=== PATIENT | female | born 1975 | race Caucasian/White ===

== ENCOUNTER 2017-11-22 21:29 | Emergency (ER) | payer MEDICARE, MEDICAID ==
[2017-11-22] MEDS ORDERED: Ondansetron HCl/PF 4 MG/2 ML Vial ONE (23:31)
--- NOTE | 2017-11-22 23:50 | RAD ---
TWO VIEWS CHEST 11/22/17 HISTORY: Cough. Fever. COMPARISON: 06/10/17. FINDINGS: Normal cardiac silhouette. The pulmonary vessels and hilum are normal. Costophrenic angles are clear. No mass. No consolidation. No pneumothorax or osseous abnormality. IMPRESSION: No acute cardiopulmonary process. POS: [facility]
[2017-11-22 23:55] LABS: #Basophils 0.1 thou/uL (0.0-0.2); #Lymphocytes 2.7 thou/uL (1.20-3.40); #Monocytes 0.9 thou/uL (0.11-0.59); #Neutrophils 5.1 thou/uL (1.40-6.50); %Basophils 0.7 % (0.0-1.0); %Eosinophils 0.6 % (0.0-10.0); %Lymphocytes 30.8 % (21.0-51.0); %Monocytes 9.7 % (0.0-10.0); %Neutrophils 58.3 % (42.0-75.0); Hemoglobin 11.5 g/dL (12.0-16.0); Mean Corpuscular HGB CONC 30.9 g/dL (32.0-36.0); Mean Corpuscular Hemoglobin 23.6 pg (27.0-31.0); Mean Corpuscular Volume 76.2 fl (81.0-99.0); Mean Platelet Volume 7.2 fL (7.4-10.4); Platelet Count 364 thou/uL (130-400); RBC Distribution Width 15.7 % (11.5-14.5); Red Blood Cell (RBC) Count 4.87 mill/uL (4.20-5.40); White Blood Cell (WBC) Count 8.8 thou/uL (4.8-10.8)
[2017-11-23 00:10] LABS: BHCG - Serum Negative (NEGATIVE); Pregs Control Background? CLEAR/WHITE (CLR/WHITE); Pregs Control Bar Appear? YES (CONTROL BAR)
[2017-11-23 00:11] LABS: ALT (SGPT) 12 U/L (8-55); AST (SGOT) 17 U/L (5-34); Albumin 3.7 g/dL (3.5-5.0); Alkaline Phosphatase 86 U/L (40-150); Anion Gap 13 mmol/L (10-20); BUN (Urea Nitrogen) 12 mg/dL (7.0-18.7); Bilirubin, Total Less than 0.2 mg/dL (0.2-1.2); Calc. Creatinine Clearance 0 mL/min (70-130); Carbon Dioxide 26 mmol/L (22-29); Chloride 100 mmol/L (98-107); Estimated GFR-MDRD Greater than 90; Globulin 2.7 g/dL (2.4-3.5); Glucose 93 mg/dL (70-105); Lipase 22 U/L (8-78); Potassium 4.2 mmol/L (3.5-5.1); Protein, Total 6.4 g/dL (6.0-8.3); Sodium 135 mmol/L (136-145)
[2017-11-23 01:39] LABS: Bilirubin Small (Negative); Blood, Urine Negative (Negative); Clarity CLEAR (Clear); Glucose, Urine (Dipstick) Negative (Negative); Leukocyte Negative (Negative); Nitrite Negative (Negative); Protein, Urine (Dipstick) Negative (Neg-Trace); Specific Gravity, Urine 1.031 (1.002-1.036); Urobilinogen 0.2 mg/dL (0.2-1.0)
== END 2017-11-23 02:05 | disposition home or self-care (01) ==
LOC: ERS 21:29
DX: E87.1 Hypo-osmolality and hyponatremia (principal); D64.9 Anemia, unspecified; R05 Cough; G40.909 Epilepsy, unspecified, not intractable, without status epilepticus; E11.9 Type 2 diabetes mellitus without complications; E03.9 Hypothyroidism, unspecified; E78.5 Hyperlipidemia, unspecified; I10 Essential (primary) hypertension; F32.9 Major depressive disorder, single episode, unspecified; F17.210 Nicotine dependence, cigarettes, uncomplicated; Z79.84 Long term (current) use of oral hypoglycemic drugs; Z79.899 Other long term (current) drug therapy
CPT/HCPCS: 71046; 80053; 81003; 83690; 84703; 85025; 87804; 93005; 96361; 96374; J2405

== ENCOUNTER 2017-12-22 10:28 | Outpatient (CLI) | payer MEDICARE, MEDICAID | END 2017-12-22 10:29 | disposition home or self-care (01) | LOC: BICMAMMO 10:28 | PROVIDERS: ATTEND Family Medicine | DX: Z12.31 Encounter for screening mammogram for malignant neoplasm of breast (principal) | CPT/HCPCS: 77063; 77067 ==

== ENCOUNTER 2018-03-10 07:29 | Outpatient (CLI) | payer MEDICARE, MEDICAID | END 2018-03-10 07:30 | disposition home or self-care (01) | LOC: BICMRI 07:29 | PROVIDERS: ATTEND Psychiatry & Neurology Psychiatry | DX: D43.0 Neoplasm of uncertain behavior of brain, supratentorial (principal); F32.9 Major depressive disorder, single episode, unspecified; F65.9 Paraphilia, unspecified; J32.9 Chronic sinusitis, unspecified; I77.89 Other specified disorders of arteries and arterioles | CPT/HCPCS: 70553 ==

== ENCOUNTER 2018-07-19 04:14 | Observation (INO) | payer MEDICARE, MEDICAID ==
[2018-07-19 05:12] LABS: #Basophils 0.1 thou/uL (0.0-0.2); #Eosinphils 0.3 thou/uL (0.0-0.7); #Lymphocytes 3.1 thou/uL (1.20-3.40); #Monocytes 0.8 thou/uL (0.11-0.59); %Eosinophils 3.3 % (0.0-10.0); %Lymphocytes 33.7 % (21.0-51.0); %Monocytes 8.3 % (0.0-10.0); %Neutrophils 53.6 % (42.0-75.0); Mean Corpuscular HGB CONC 31.3 g/dL (32.0-36.0); Mean Corpuscular Hemoglobin 22.9 pg (27.0-31.0); Mean Corpuscular Volume 73.2 fL (78.0-98.0); Mean Platelet Volume 7.5 fL (7.4-10.4); Platelet Count 454 thou/uL (130-400); RBC Distribution Width 16.8 % (11.5-14.5); Red Blood Cell (RBC) Count 4.36 mill/uL (4.20-5.40); White Blood Cell (WBC) Count 9.3 thou/uL (4.8-10.8)
[2018-07-19 05:22] LABS: ALT (SGPT) 8 U/L (8-55); AST (SGOT) 12 U/L (5-34); Albumin 3.5 g/dL (3.5-5.0); Alkaline Phosphatase 89 U/L (40-150); Anion Gap 10 mmol/L (10-20); BUN (Urea Nitrogen) 7 mg/dL (7.0-18.7); Bilirubin, Total 0.2 mg/dL (0.2-1.2); Calc. Creatinine Clearance 0 mL/min (70-130); Calcium 8.6 mg/dL (7.8-10.44); Carbon Dioxide 26 mmol/L (22-29); Chloride 103 mmol/L (98-107); Estimated GFR-MDRD Greater than 90; Globulin 2.8 g/dL (2.4-3.5); Glucose 130 mg/dL (70-105); Potassium 4.1 mmol/L (3.5-5.1); Protein, Total 6.3 g/dL (6.0-8.3); Sodium 135 mmol/L (136-145)
[2018-07-19] MEDS ORDERED: Ketorolac Tromethamine 30 MG/ML VIAL ONE (05:27)
[2018-07-19] MEDS ORDERED: Dexamethasone 10 MG/ML VIAL ONE (05:27)
[2018-07-19 05:46] LABS: Bilirubin Negative (Negative); Blood, Urine Negative (Negative); Clarity CLEAR (Clear); Glucose, Urine (Dipstick) Negative (Negative); Leukocyte Negative (Negative); Nitrite Negative (Negative); Protein, Urine (Dipstick) Negative (Neg-Trace); Specific Gravity, Urine 1.043 (1.002-1.036)
[2018-07-19] MEDS ORDERED: Piperacillin/Tazobactam 3.375 GM VIAL ONE (06:00)
--- NOTE | 2018-07-19 06:12 | PDOC.FPRHP ---
- History of Present Illness Chief Complaint: Throat pain History of Present Illness: Pt presents to ED after having throat pain since yesterday, she also reports a productive cough for one week and 1 episode of watery emesis yesterday. She denies any chest pain, shortness of breath, or fever/chills. She does have a history of asthma and GERD but reports these are both well controlled with her current medications. She denies any sick contacts and has been taking some rubatussin for relief. ED Course: CBC, CMP, strep culture, Xray neck, CT neck. - History PMHx:GERD, DMII, Insomnia, OAB, HLD, Hypothyroid, HTN, Asthma, Depression, mild cognitive impairment PSHx: tubal ligation FHx: depression, HTN Social: former smoker, social drinker, no drugs - Review of Systems General: denies: fever/chills, weight/appetite/sleep changes, night sweats Eyes: denies: eye pain, vision changes ENT: reports: rhinorrhea. denies: nasal congestion Respiratory: reports: cough. denies: congestion, shortness of breath Cardiovascular: denies: chest pain, palpitation, edema Gastrointestinal: reports: nausea, vomiting. denies: diarrhea Genitourinary: denies: incontinence, dysuria Skin: denies: rashes, lesions, jaundice Musculoskeletal: denies: pain, tenderness Neurological: denies: numbness, syncope Psychological: reports: depression. denies: anxiety - Vital signs BP: [125/86] HR: [82] RR: [20] Tmax: [99] Pox: [95]% on [RA] Wt: [88.6kg] - Physical Exam Constitutional: NAD, well developed HEENT: normocephalic and atraumatic, EOMI, grossly normal vision, grossly normal hearing Neck: supple, trachea midline, other (tenderness to palpation around trachea) Chest: no-tender to palpation Heart: RRR, normal S1/S2 Lungs: CTAB, no respiratory distress Abdomen: soft, non-tender Musculoskeletal: normal structure, normal tone, ROM grossly normal Neurological: no focal deficit, CN II-XII intact Skin: no rash/lesions, good turgor Heme/Lymphatic: no unusual bruising or bleeding Psychiatric: normal mood and affect FMR H&P: Results - Labs Result Diagrams: 07/19/18 05:00 07/19/18 05:00 Lab results: WBC 9.3 thou/uL (4.8-10.8) 07/19/18 05:00 Hgb 10.0 g/dL (12.0-16.0) L 07/19/18 05:00 Hct 31.9 % (36.0-47.0) L 07/19/18 05:00 MCV 73.2 fL (78.0-98.0) L 07/19/18 05:00 Plt Count 454 thou/uL (130-400) H 07/19/18 05:00 Neutrophils % 53.6 % (42.0-75.0) 07/19/18 05:00 Sodium 135 mmol/L (136-145) L 07/19/18 05:00 Potassium 4.1 mmol/L (3.5-5.1) 07/19/18 05:00 Chloride 103 mmol/L (98-107) 07/19/18 05:00 Carbon Dioxide 26 mmol/L (22-29) 07/19/18 05:00 BUN 7 mg/dL (7.0-18.7) 07/19/18 05:00 Creatinine 0.68 mg/dL (0.6-1.1) 07/19/18 05:00 Glucose 130 mg/dL (70-105) H 07/19/18 05:00 Calcium 8.6 mg/dL (7.8-10.44) 07/19/18 05:00 Total Bilirubin 0.2 mg/dL (0.2-1.2) 07/19/18 05:00 AST 12 U/L (5-34) 07/19/18 05:00 ALT 8 U/L (8-55) 07/19/18 05:00 Alkaline Phosphatase 89 U/L (40-150) 07/19/18 05:00 Serum Total Protein 6.3 g/dL (6.0-8.3) 07/19/18 05:00 Albumin 3.5 g/dL (3.5-5.0) 07/19/18 05:00 Urine Ketones Negative mg/dL (Negative) 07/19/18 05:25 Urine Blood Negative (Negative) 07/19/18 05:25 Urine Nitrite Negative (Negative) 07/19/18 05:25 Ur Leukocyte Esterase Negative (Negative) 07/19/18 05:25 FMR H&P: A/P - Problem List (1) Phlegmon Current Visit: Yes Status: Acute Code(s): L02.91 - CUTANEOUS ABSCESS, UNSPECIFIED (2) GERD (gastroesophageal reflux disease) Current Visit: Yes Status: Acute Code(s): K21.9 - GASTRO-ESOPHAGEAL REFLUX DISEASE WITHOUT ESOPHAGITIS (3) Asthma Current Visit: Yes Status: Acute Code(s): J45.909 - UNSPECIFIED ASTHMA, UNCOMPLICATED (4) HTN (hypertension) Current Visit: Yes Status: Acute Code(s): I10 - ESSENTIAL (PRIMARY) HYPERTENSION (5) DMII (diabetes mellitus, type 2) Current Visit: Yes Status: Acute (6) HLD (hyperlipidemia) Current Visit: Yes Status: Acute Code(s): E78.5 - HYPERLIPIDEMIA, UNSPECIFIED (7) Hypothyroid Current Visit: Yes Status: Acute Code(s): E03.9 - HYPOTHYROIDISM, UNSPECIFIED - Plan 1. Phlegmon in deep tissues of neck -noted on CT scan - IV vanc and zosyn for 24 hours - Repeat CT scan 24 hrs - Consult ENT for possible drainage - tylenol for pain - NS @ 100 ml/hr 2. GERD - possible cause if non-infectious process - chronic inflammatory changes vs neoplasm - continue home meds 3. Asthma - possible source of increased inflammation - continue home meds 4. HTN - well controlled - continue home meds 5. HLD - well controlled - continue home medications 6. Hypothyroid - well controlled - continue home meds Disposition/LOS: IV abx for 24 hours, ENT to re-evaluate for possible drainage, DC home on PO Abx FMR H&P: Upper Level - Pertinent history 43F presents with cough since Friday, progressing to sore throat today. It is associated with voice hoarsness, 1x vomiting. She is able to take oral intake, but decreased due to sore throat. She denies any percipitating event, fever, trauma. She only has history of controlled DM2. - Pertinent findings PMHX epilepsy, DM2, hypothyrodism, overactive bladder, HLD, HTN, psoriasis, bladder spasm, quervain's tendonynovitis, bipolar, depression PSHx: Tubal ligation Allergies: NKDA Social: Live in long term, [place]. Current tobacco user. Social alcohol use. Pertinent Physical Gen: Alert, oriented HEENT: Hoarse voice. No obvious pharynx lesion or changes. No obvious edema. Dry mucosal membrane CV: RRR Resp: CTA bilat, non labored breathing CT Neck: Possible left sided phlegmon on personal read. Will await official radiology read - Plan Date/Time: 07/19/18 0608 I, [Nando Lennon], have evaluated this patient and agree with findings/plan as outlined by newsroom intern resident. Pertinent changes/additions are listed here. 1. Possible left sided, paratracheal phelgmon - No sign of systemic involvement or impending airway compromise. Seen on CT. No obvious etiology though patient is immunocompromised - Strep culture pending. Official CT read pending. - Plan, official consult with ENT, who has been made aware by ER physician. ENT recommend vanc/zosyn and they will see tomorrow for possible drainage. May consider steroid 2. Dehydration - Urine had specific gravity of 1.043. Start on NS fluid. Patient had decrease intake due to sore throat. 2. DM2 - Hold metformin, start on SSI. Glucose 130. Stable. 3. Bipolar - Continue lamictal, trazadone. Not having hallucination or abnormal behavior 4. HLD - Continue lovastatin Attending Addendum - Attending Addendum Date/Time: 07/19/18 9557 I personally evaluated the patient and discussed the management with Dr. Gaviria I agree with the History, Examination, Assessment and Plan documented above with any addition or exceptions noted below. Exam no tracheal deviation or airway compromise, empirical Antibiotic started with plan to repeat Soft tissue imaging for coalescense/abscess formation at 24 hours s/p IV antibiotic and ENT f/u no HX of FB ingestion or choking, oral exam non remarkable for significant dental disease at this time.
[2018-07-19] MEDS ORDERED: Acetaminophen 325 MG TAB PO PRN (07:56)
[2018-07-19 08:06] VITALS: BMI 29.7
--- NOTE | 2018-07-19 08:44 | CT ---
PRELIMINARY REPORT/[facility]/EMERGENCY AFTER HOURS PROCEDURE: EXAM: CT Neck With Intravenous Contrast EXAM DATE/TIME: 07/19/2018 5:08 AM CLINICAL HISTORY: 43 years old, female; Pain; Neck pain; Patient HX: Er 5; Eval for possible abscess; PT reports sore t hroat onset . States woke up at 0300 and feels like throat may be closing. No airway compromi se or distress. PT speaking in full sentences and drinking water w/o diff. TECHNIQUE: Axial computed tomography images of the neck with intravenous contrast. Coronal and sagittal reformatted images were created and reviewed. COMPARISON: No relevant prior studies available. FINDINGS: Nasopharynx: Normal. Oropharynx: There is parapharyngeal soft tissue stranding/phlegmonous change without discrete abscess . Hypopharynx: Normal. Larynx: Normal. Normal epiglottis. Trachea: Normal. Retropharyngeal space: Normal. Submandibular/Parotid glands: The parotid and submandibular salivary glands are normal. Thyroid: There is a 1 cm hypoattenuating nodule within the RIGHT thyroid lobe. Bones/joints: Normal. No acute fracture. Soft tissues: Normal. No significant soft tissue swelling. Vasculature: No acute findings. Lymph nodes: Normal. No lymphadenopathy. Lung apices: Normal as visualized. IMPRESSION: 1. There is parapharyngeal soft tissue stranding/phlegmonous change without discrete abscess. 2. There is a 1 cm hypoattenuating nodule within the RIGHT thyroid lobe. Nonemergent thyroid ultrasou nd may be performed for further characterization. Thank you for allowing us to participate in the care of your patient. Dictated and Authenticated by: Sourav Walsh MD 07/19/2018 5:29 AM Central Time ([place] & [place]) FINAL REPORT EMERGENT AFTER HOURS CT NECK WITH IV CONTRAST: DATE: 07/19/18. HISTORY: The patient reports a sore throat with the onset of symptoms on . The patient feels as if throat is closing. IMPRESSION: 1. Fluid seen within the retropharyngeal space extending from the C2-3 level to the C6-7 level. No discrete fluid collection is seen to suggest an abscess. This could be infectious or inflammatory i n etiology. 2. Calcifications within the palatine tonsils bilaterally, suggesting prior infectious or inflammato ry process. 3. Small approximately 1 cm hypodense nodule right lobe of the thyroid gland. Nonemergent thyroid u ltrasound is recommended. 4. Normal appearance of the bilateral carotid and submandibular glands. 5. Minimal mucosal thickening in each maxillary antrum. 6. Degenerative changes in the cervical spine. 7. The airway is patent. 8. No enlarged lymph nodes are seen by CT size criteria, but there does appear to be mild increased number of lymph nodes bilaterally within the neck which may be reactive in origin. 9. Findings are in agreement with the preliminary report by [facility]. POS: [facility]
[2018-07-19] MEDS: Sodium Chloride 0.9% 1,000 ML IV SCH (09:21)
[2018-07-19] MEDS: Piperacillin/Tazobactam 4.5 GM in Sodium Chloride 0.9% 100 ML IVPB SCH ×4 (09:26→23:32)
[2018-07-19] MEDS: Enoxaparin Sodium 40 MG/0.4 ML SYRINGE SC SCH (09:32)
--- NOTE | 2018-07-19 09:34 | RAD ---
TWO VIEWS NECK SOFT TISSUES: DATE: 07/19/18. HISTORY: Sore throat which is getting worse. FINDINGS: There is widening of the prevertebral/retropharyngeal soft tissues. No radiopaque foreign body is se en. The epiglottis and aryepiglottic folds appear to be grossly within normal limits. Degenerative changes are seen in the cervical spine and there is straightening of the normal cervical lordotic cur vature. IMPRESSION: Widening of the prevertebral soft tissues/prominence of the retropharyngeal soft tissues. Please see CT scan neck for further details which was performed after this exam. POS: [facility]
[2018-07-19] MEDS ORDERED: ISOVUE-370 76%-LOCM 1 ML ONE (12:14)
--- NOTE | 2018-07-19 12:31 | RAD ---
PA AND LATERAL CHEST XRAY: DATE: 07/19/18. HISTORY: Sore throat. The patient feels as if the throat is closing. COMPARISON: 11/23/17. FINDINGS: Cardiac silhouette and pulmonary vasculature are within normal limits. Lungs are clear. There has b een no interval change from the prior study. IMPRESSION: No acute cardiopulmonary process. POS: [facility]
[2018-07-19] MEDS: Vancomycin HCl 1.5 GM in Sodium Chloride 0.9% 250 ML 300 ML IVPB SCH (15:38)
[2018-07-19] MEDS ORDERED: Cyclobenzaprine 10 MG TAB PO SCH (21:00)
[2018-07-19] MEDS ORDERED: traZODone HCl 50 MG TAB PO SCH (21:00)
[2018-07-19] MEDS ORDERED: Montelukast Sodium 10 mg Tablet PO SCH (21:00)
[2018-07-19] MEDS ORDERED: Lovastatin 20 MG TAB PO SCH (21:00)
[2018-07-19] MEDS: Oxybutynin 5 MG TAB PO SCH (21:21)
[2018-07-19] MEDS: Venlafaxine HCl XR 150 MG CAP PO SCH (21:21)
[2018-07-19] MEDS ORDERED: Cepastat Lozenges 1 LOZ PO PRN (23:00)
[2018-07-20] MEDS: Sodium Chloride 0.9% 1,000 ML IV SCH (01:23)
[2018-07-20] MEDS: Piperacillin/Tazobactam 4.5 GM in Sodium Chloride 0.9% 100 ML IVPB SCH ×2 (05:12→13:18)
[2018-07-20 05:24] LABS: #Lymphocytes 2.4 thou/uL (1.20-3.40); #Monocytes 0.6 thou/uL (0.11-0.59); #Neutrophils 7.3 thou/uL (1.40-6.50); %Basophils 0.2 % (0.0-1.0); %Eosinophils 0.4 % (0.0-10.0); %Lymphocytes 23.3 % (21.0-51.0); %Neutrophils 70.1 % (42.0-75.0); Hemoglobin 9.4 g/dL (12.0-16.0); Mean Corpuscular HGB CONC 31.2 g/dL (32.0-36.0); Mean Corpuscular Hemoglobin 22.9 pg (27.0-31.0); Mean Corpuscular Volume 73.4 fL (78.0-98.0); Mean Platelet Volume 7.5 fL (7.4-10.4); Platelet Count 485 thou/uL (130-400); RBC Distribution Width 16.8 % (11.5-14.5); Red Blood Cell (RBC) Count 4.09 mill/uL (4.20-5.40); White Blood Cell (WBC) Count 10.4 thou/uL (4.8-10.8)
[2018-07-20 05:38] LABS: ALT (SGPT) Less than 7 U/L (8-55); AST (SGOT) 11 U/L (5-34); Albumin 3.4 g/dL (3.5-5.0); Alkaline Phosphatase 77 U/L (40-150); Anion Gap 11 mmol/L (10-20); BUN (Urea Nitrogen) 7 mg/dL (7.0-18.7); Bilirubin, Total 0.2 mg/dL (0.2-1.2); Calc. Creatinine Clearance 142 mL/min (70-130); Carbon Dioxide 25 mmol/L (22-29); Chloride 106 mmol/L (98-107); Estimated GFR-MDRD 90; Globulin 2.5 g/dL (2.4-3.5); Glucose 157 mg/dL (70-105); Potassium 3.9 mmol/L (3.5-5.1); Protein, Total 5.9 g/dL (6.0-8.3); Sodium 138 mmol/L (136-145)
--- NOTE | 2018-07-20 05:39 | PDOC.FM ---
- Subjective Subjective: No overnight events. Pt is tolerating PO intake. Continues to have throat pain. Denies chest pain, SOB, fever, chills. No other concerns. - Objective MAR Reviewed: Yes Vital Signs & Weight: Vital Signs (12 hours) Temp Pulse Resp BP Pulse Ox 07/19/18 19:51 97.9 F 101 H 18 116/71 92 L Weight Weight 88.904 kg I&O: 07/18/18 07/19/18 07/20/18 06:59 06:59 06:59 Intake Total 1330 Balance 1330 Result Diagrams: 07/20/18 04:47 07/20/18 04:47 <Shantal Rinaldi - Last Filed: 07/20/18 09:28> - Objective Vital Signs & Weight: Vital Signs (12 hours) Temp Pulse Resp BP Pulse Ox 07/20/18 11:54 98 F 87 20 119/77 92 L 07/20/18 09:19 85 07/20/18 07:54 98 F 85 18 120/73 97 Weight Weight 88.904 kg I&O: 07/19/18 07/20/18 07/21/18 06:59 06:59 06:59 Intake Total 3219 631 Balance 3219 631 Result Diagrams: 07/20/18 04:47 07/20/18 04:47 <Kassidy Mast - Last Filed: 07/20/18 17:22> Phys Exam - Physical Examination Constitutional: NAD Voice hoarse Neck: supple Respiratory: no wheezing, clear to auscultation bilateral Cardiovascular: RRR, no significant murmur Gastrointestinal: soft, non-tender, positive bowel sounds Musculoskeletal: pulses present Psychiatric: normal affect, A&O x 3 <Shantal Rinaldi - Last Filed: 07/20/18 09:28> Dx/Plan (1) Phlegmon Code(s): L02.91 - CUTANEOUS ABSCESS, UNSPECIFIED Status: Acute (2) Asthma Code(s): J45.909 - UNSPECIFIED ASTHMA, UNCOMPLICATED Status: Chronic (3) DMII (diabetes mellitus, type 2) Status: Chronic (4) GERD (gastroesophageal reflux disease) Code(s): K21.9 - GASTRO-ESOPHAGEAL REFLUX DISEASE WITHOUT ESOPHAGITIS Status: Chronic (5) HLD (hyperlipidemia) Code(s): E78.5 - HYPERLIPIDEMIA, UNSPECIFIED Status: Chronic (6) HTN (hypertension) Code(s): I10 - ESSENTIAL (PRIMARY) HYPERTENSION Status: Chronic (7) Hypothyroid Code(s): E03.9 - HYPOTHYROIDISM, UNSPECIFIED Status: Chronic - Plan Plan: Ms Wang is a 43yo female presenting with paratracheal phelgmon found on neck CT Paratracheal Phelgmon - CT 07/19: Fluid seen w/i retropharyngeal space extending from C2-3 to C6-7. Infectious vs inflammatory. Calcifications w/i palatine tonsils, 1cm hypodense nodule right lobe of thyroid - No airway compromise, pt tolerating PO intake - ENT consulted for possible drainage, awaiting recs - Tylenol for pain - Stopped IVF - Consider transitioning from IV Vanc and Zosyn to PO antibiotics today - Possibly repeat CT scan today, pending ENT recs Hypoxia - Uncertain if this is new or chronic, will monitor closely and consider working up HTN - Well controlled - Continue home Lisinopril DMII - Holding home Metformin - ACHS accuchecks - SSI Bipolar, stable - Continue home lamictal, trazadone HLD - Continue home Lovastatin Hypothyroid - Continue home Levothyroxine Seasonal Allergies - Continue home Monelukast - Zyrtec Thyroid nodule - 1cm right thyroid nodule - Nonemergent thyroid US recommended DVT ppx: Lovenox Code Status: FULL Dispo: pending ENT recommendations <Shantal Rinaldi - Last Filed: 07/20/18 09:28> Attending Addendum - Attending Addendum Date/Time: 07/20/18 1722 I personally evaluated the patient and discussed the management with Dr. Rinaldi. I agree with the History, Examination, Assessment and Plan documented above with any addition or exceptions noted below. Pt notes some improvement in throat pain. Remains on antibiotics. Waiting on ENT consult. <Kassidy Mast - Last Filed: 07/20/18 17:22>
[2018-07-20] MEDS ORDERED: Levothyroxine Sodium 25 MCG TAB PO SCH (06:00)
[2018-07-20] MEDS: Vancomycin HCl 1.5 GM in Sodium Chloride 0.9% 250 ML 300 ML IVPB SCH (06:33)
[2018-07-20 08:03] VITALS: TEMP 98
[2018-07-20] MEDS ORDERED: FLUORIDE PO SCH (09:00)
[2018-07-20] MEDS ORDERED: Loratadine/Pseudoephedrine 10/240 mg Tablet PO SCH (09:00)
[2018-07-20] MEDS ORDERED: Lisinopril 2.5 MG TAB PO SCH (09:00)
[2018-07-20] MEDS ORDERED: lamoTRIgine 25 MG TAB PO SCH (09:00)
[2018-07-20] MEDS: Enoxaparin Sodium 40 MG/0.4 ML SYRINGE SC SCH (09:18)
[2018-07-20] MEDS: Oxybutynin 5 MG TAB PO SCH (09:19)
[2018-07-20] MEDS: Venlafaxine HCl XR 150 MG CAP PO SCH (09:19)
[2018-07-20 12:03] VITALS: BP 119/77
[2018-07-20] MEDS ORDERED: metFORMIN 500 MG TAB PO SCH (17:00)
[2018-07-20] MEDS ORDERED: Non-Formulary Item 1 EACH (Metformin Hcl [Metformin Hcl Er] 500 MG) PO SCH (21:00)
--- NOTE | 2018-07-21 01:35 | DIS-2 ---
DATE OF ADMISSION: 07/19/2018 DATE OF DISCHARGE: 07/20/2018 RESIDENT: Shantal Rinaldi, PGY1. ADMITTING ATTENDING: Kike Marquez MD DISCHARGE ATTENDING: Kassidy Mast MD CONSULTATION: 1. ENT PROCEDURES: 1. Soft tissue neck x-ray, widening of a prevertebral soft tissue prominence of the retropharyngeal soft tissues. 2. Soft tissue neck CT, showing fluid within the retropharyngeal space extending from C2-C3 level to C6-C7 level, no discrete fluid collection is seen to suggest an abscess. This could be infectious or inflammatory in etiology. Calcifications within palatine tonsils bilaterally. A 1-cm hypodense nodule in right lobe of thyroid. Degenerative changes of the cervical spine. Minimal mucosal thickening in each maxillary antrum. Increased number of lymph nodes in neck may be reactive in origin. 3. Chest x-ray, no acute cardiopulmonary process. DISCHARGE MEDICATIONS: 1. Augmentin 875-125 mg tablet b.i.d. for 10 days (new). 2. Zyrtec 1 tab b.i.d. 3. Fluoride 473 mL bottle, 10 mL daily swish and spit. 4. Lamotrigine 25 mg daily. 5. Levothyroxine 25 mcg daily. 6. Lisinopril 2.5 mg daily. 7. Lovastatin 40 mg at bedtime. 8. Metformin 500 mg b.i.d. 9. Singulair 10 mg at bedtime. 10. Oxybutynin 5 mg b.i.d. 11. Trazodone 100 mg at bedtime. 12. Effexor 150 mg b.i.d. DISCONTINUED MEDICATIONS: None. HISTORY OF PRESENT ILLNESS AND HOSPITAL COURSE: Ms. Wang is a 43-year-old female who presented to the ED for throat pain and productive cough and one episode of watery emesis. CT was concerning for retropharyngeal phlegmon versus abscess, she was started on Zosyn. ENT was consulted and after looking at CT scan, felt that the clinical picture represented tonsillitis and recommended discharging the patient on oral antibiotics. ENT would like to see her in clinic tomorrow morning. Her chronic conditions of hypertension, hyperlipidemia, hypothyroidism, seasonal allergies, bipolar, type 2 diabetes were stable on her home medications. There was a thyroid nodule found incidentally on CT that was 1 cm in the right lobe. Nonemergent thyroid ultrasound is recommended. DISPOSITION: Stable. DISCHARGE INSTRUCTIONS: 1. Location: Home. 2. Diet: Regular, diabetic diet. 3. Activity: No restrictions. 4. Followup: Follow up with ENT tomorrow morning in clinic. Follow up with PCP within 3 days. [facility]
[2018-07-21] MEDS ORDERED: Loratadine/Pseudoephedrine 10/240 mg Tablet PO SCH (09:00)
== END 2018-07-20 16:07 | disposition home or self-care (01) ==
LOC: ERS 04:14 → 2SW 06:50
PROVIDERS: ADMIT Family Medicine; ATTEND Family Medicine
DX: L02.11 Cutaneous abscess of neck (principal); K21.9 Gastro-esophageal reflux disease without esophagitis; J45.909 Unspecified asthma, uncomplicated; I10 Essential (primary) hypertension; E11.9 Type 2 diabetes mellitus without complications; E03.9 Hypothyroidism, unspecified; E78.5 Hyperlipidemia, unspecified; Z87.891 Personal history of nicotine dependence; Z79.84 Long term (current) use of oral hypoglycemic drugs; Z79.899 Other long term (current) drug therapy
CPT/HCPCS: 70360; 70491; 71046; 80053 ×2; 81003; 85025 ×2; 87081; 87430; 90732; 96361 ×2; 96365; 96366 ×2; 96367; 96372 ×2; 96375; 99285; 99406; G0009; G0378; 36415; 90471; A4216; J1100; J1650; J1885; J2543; J3370; J7050

== ENCOUNTER 2018-10-27 16:35 | Emergency (ER) | payer MEDICARE, MEDICAID ==
--- NOTE | 2018-10-27 17:39 | RAD ---
PORTABLE AP CHEST X-RAY: 10/27/18 HISTORY: Cough and chest pain. COMPARISON: 07/19/18. FINDINGS: The cardiac silhouette and pulmonary vasculature are within normal limits. The lungs are clear. There has been no interval change from the prior exam. IMPRESSION: No acute cardiopulmonary process. POS: [facility]
--- NOTE | 2018-10-27 21:38 | CT ---
NECK CT SCAN WITH IV CONTRAST: 10/27/18 HISTORY: 43-year-old female with history of throat pain, difficulty swallowing, worsening productive cough COMPARISON: 07/19/18. There is some bilateral maxillary sinus mucosal disease as well as bilateral ethmoid sinus mucosal di sease and marked congestion involving the right middle and inferior nasal turbinates. There is also s ome right sphenoid sinus mucosal disease. The mastoids appear to be clear. There are some up to borderline sized shotty lymph nodes noted in right and left neck regions. No rubia dence for parapharyngeal or retropharyngeal mass or abnormal fluid collection. The retropharyngeal ed ematous and fluid changes seen on the prior study have resolved. The epiglottis, aryepiglottic folds, and cord regions are unremarkable. Bilateral submandibular and parotid glands are unremarkable. Smal l stable right lobe of thyroid nodule. No abscess or abnormal fluid collection within the neck. IMPRESSION: Sinus mucosal disease including ethmoid, maxillary, and sphenoid sinuses as well as considerable ashley estion within the right sided cavity with very congested appearing right middle and inferior nasal tu rbinates with narrowing of the right nasal meati. Scattered up to borderline sized lymph nodes, stabl e. Resolution of the previously noted retropharyngeal fluid and edematous changes seen on the prior s tudy. Small stable right lobe of thyroid nodule. No evidence for other significant acute process in t he neck. POS: [facility]
== END 2018-10-27 21:15 | disposition home or self-care (01) ==
LOC: ERS 16:35
DX: J01.90 Acute sinusitis, unspecified (principal); F31.9 Bipolar disorder, unspecified; G40.909 Epilepsy, unspecified, not intractable, without status epilepticus; F42.9 Obsessive-compulsive disorder, unspecified; E11.9 Type 2 diabetes mellitus without complications; E03.9 Hypothyroidism, unspecified; E78.5 Hyperlipidemia, unspecified; I10 Essential (primary) hypertension; Z79.899 Other long term (current) drug therapy; Z79.84 Long term (current) use of oral hypoglycemic drugs
CPT/HCPCS: 70491; 71045; 87081; 87430; 87804

== ENCOUNTER 2018-10-28 20:25 | Emergency (ER) | payer MEDICARE, MEDICAID ==
[2018-10-28] MEDS ORDERED: Adacel (T-DAP) 0.5 ML SYRINGE ONE (20:47)
== END 2018-10-28 21:26 | disposition home or self-care (01) ==
LOC: ERS 20:25
DX: S51.852A Open bite of left forearm, initial encounter (principal); S50.312A Abrasion of left elbow, initial encounter; G40.909 Epilepsy, unspecified, not intractable, without status epilepticus; E11.9 Type 2 diabetes mellitus without complications; E03.9 Hypothyroidism, unspecified; E78.5 Hyperlipidemia, unspecified; I10 Essential (primary) hypertension; F31.9 Bipolar disorder, unspecified; F42.9 Obsessive-compulsive disorder, unspecified; Z79.84 Long term (current) use of oral hypoglycemic drugs; Z79.899 Other long term (current) drug therapy; W50.3XXA Accidental bite by another person, initial encounter
CPT/HCPCS: 90471; 90715

== ENCOUNTER 2018-12-23 09:31 | Outpatient (CLI) | payer MEDICARE, MEDICAID | END 2018-12-23 09:32 | disposition home or self-care (01) | LOC: BICMAMMO 09:31 | PROVIDERS: ATTEND Family Medicine | DX: Z12.31 Encounter for screening mammogram for malignant neoplasm of breast (principal); R92.1 Mammographic calcification found on diagnostic imaging of breast | CPT/HCPCS: 77063; 77067 ==

== ENCOUNTER 2019-12-29 09:22 | Outpatient (CLI) | payer MEDICARE, MEDICAID ==
--- NOTE | 2019-12-29 10:29 | MMO ---
Bilateral MAMMO Bilat Screen [facility]. CLINICAL HISTORY: Patient is 44 years old and is seen for screening. The patient has no family history of breast cancer. The patient has no personal history of cancer. VIEWS: The views performed were: bilateral craniocaudal with tomosynthesis and bilateral mediolateral oblique with tomosynthesis. FILMS COMPARED: The present examination has been compared to prior imaging studies performed at [facility] on 11/28/2015, 12/10/2016, 12/22/2017 and 12/23/2018. This study has been interpreted with the assistance of computer-aided detection. MAMMOGRAM FINDINGS: There are scattered fibroglandular densities. There are vascular calcifications seen in both breasts. There are no suspicious masses, suspicious calcifications, or new areas of architectural distortion. IMPRESSION: A ROUTINE FOLLOW-UP MAMMOGRAM IN 1 YEAR IS RECOMMENDED. THE RESULTS OF THIS EXAM WERE SENT TO THE PATIENT. ACR BI-RADS Category 2 - Benign finding MAMMOGRAPHY NOTE: 1. A negative mammogram report should not delay a biopsy if a dominant of clinically suspicious mass is present. 2. Approximately 10% to 15% of breast cancers are not detected by mammography. 3. Adenosis and dense breasts may obscure an underlying neoplasm. Reported by: DAVIE BARRAGAN MD Electonically Signed: [id number]
== END 2019-12-29 09:23 | disposition home or self-care (01) ==
LOC: BICMAMMO 09:22
PROVIDERS: ATTEND Family Medicine
DX: Z12.31 Encounter for screening mammogram for malignant neoplasm of breast (principal)
CPT/HCPCS: 77063; 77067

== ENCOUNTER 2020-04-18 20:31 | Emergency (ER) | payer MEDICARE, MEDICAID, OTHER ==
[2020-04-19 14:18] LABS: SARS-CoV-2 MS2 Positive; SARS-CoV-2 N Gene Negative; SARS-CoV-2 S Gene Negative; SARS-CoV-2 orf1ab Negative
== END 2020-04-18 21:21 | disposition home or self-care (01) ==
LOC: ERS 20:31
DX: U07.1 COVID-19 (principal); F31.9 Bipolar disorder, unspecified; F17.210 Nicotine dependence, cigarettes, uncomplicated; Z79.899 Other long term (current) drug therapy; Z79.84 Long term (current) use of oral hypoglycemic drugs; E11.9 Type 2 diabetes mellitus without complications; G40.909 Epilepsy, unspecified, not intractable, without status epilepticus; E03.9 Hypothyroidism, unspecified; E78.5 Hyperlipidemia, unspecified; I10 Essential (primary) hypertension
CPT/HCPCS: 99283; U0003; 87635

== ENCOUNTER 2020-04-24 15:25 | Emergency (ER) | payer MEDICARE, MEDICAID, OTHER ==
[2020-04-25 15:40] LABS: SARS-CoV-2 MS2 Positive; SARS-CoV-2 N Gene Negative; SARS-CoV-2 S Gene Negative; SARS-CoV-2 orf1ab Negative
== END 2020-04-24 16:30 | disposition home or self-care (01) ==
LOC: ERS 15:25
DX: Z20.828 Contact with and (suspected) exposure to other viral communicable diseases (principal); G40.909 Epilepsy, unspecified, not intractable, without status epilepticus; E11.9 Type 2 diabetes mellitus without complications; E03.9 Hypothyroidism, unspecified; E78.5 Hyperlipidemia, unspecified; E78.00 Pure hypercholesterolemia, unspecified; I10 Essential (primary) hypertension; F31.9 Bipolar disorder, unspecified; F42.9 Obsessive-compulsive disorder, unspecified; F17.200 Nicotine dependence, unspecified, uncomplicated
CPT/HCPCS: 99283; U0003; 87635

== ENCOUNTER 2020-12-29 08:26 | Outpatient (CLI) | payer MEDICARE, MEDICAID | END 2020-12-29 08:27 | disposition home or self-care (01) | LOC: BICMAMMO 08:26 | PROVIDERS: ATTEND Family Medicine | DX: Z12.31 Encounter for screening mammogram for malignant neoplasm of breast (principal); N63.32 Unspecified lump in axillary tail of the left breast | CPT/HCPCS: 77063; 77067 ==

== ENCOUNTER 2021-01-03 08:06 | Outpatient (CLI) | payer MEDICARE, MEDICAID | END 2021-01-03 08:07 | disposition home or self-care (01) | LOC: BICULT 08:06 | PROVIDERS: ATTEND Family Medicine | DX: N63.20 Unspecified lump in the left breast, unspecified quadrant (principal); R92.8 Other abnormal and inconclusive findings on diagnostic imaging of breast ==

== ENCOUNTER 2021-01-10 08:39 | Outpatient (CLI) | payer MEDICARE, MEDICAID | END 2021-01-10 08:40 | disposition home or self-care (01) | LOC: BICRAD 08:39 | PROVIDERS: ATTEND Family Medicine | DX: M25.512 Pain in left shoulder (principal) ==

== ENCOUNTER 2021-02-22 15:19 | Emergency (ER) | payer OTHER, MEDICARE, MEDICAID ==
[2021-02-22] MEDS ORDERED: Boostrix 0.5 ML (Tdap) VIAL ONE (16:07)
[2021-02-22] MEDS ORDERED: Ibuprofen 200 MG TAB ONE (16:25)
== END 2021-02-22 16:32 | disposition home or self-care (01) ==
LOC: ERS 15:19
DX: S50.811A Abrasion of right forearm, initial encounter (principal); S60.511A Abrasion of right hand, initial encounter; G40.909 Epilepsy, unspecified, not intractable, without status epilepticus; E11.9 Type 2 diabetes mellitus without complications; E03.9 Hypothyroidism, unspecified; E78.5 Hyperlipidemia, unspecified; E78.00 Pure hypercholesterolemia, unspecified; I10 Essential (primary) hypertension; F17.210 Nicotine dependence, cigarettes, uncomplicated; Z23 Encounter for immunization; V29.9XXA Motorcycle rider (driver) (passenger) injured in unspecified traffic accident, initial encounter
CPT/HCPCS: 36416; 90471; 90715

== ENCOUNTER 2021-03-22 14:33 | Outpatient (CLI) | payer MEDICARE, MEDICAID | END 2021-03-22 14:34 | disposition home or self-care (01) | LOC: BICRAD 14:33 | PROVIDERS: ATTEND Family Medicine | DX: M79.641 Pain in right hand (principal) ==

== ENCOUNTER 2021-04-20 21:25 | Emergency (ER) | payer OTHER, MEDICARE, MEDICAID ==
[2021-04-20] MEDS ORDERED: Acetaminophen 500 MG TAB ONE (21:42)
[2021-04-20 22:03] LABS: #Basophils 0.1 thou/uL (0.0-0.2); #Eosinphils 0.2 thou/uL (0.0-0.7); #Lymphocytes 3.1 thou/uL (1.20-3.40); #Monocytes 0.5 thou/uL (0.11-0.59); #Neutrophils 3.7 thou/uL (1.40-6.50); %Basophils 1.1 % (0.0-1.0); %Eosinophils 2.3 % (0.0-10.0); %Neutrophils 48.5 % (42.0-75.0); Hemoglobin 13.4 g/dL (12.0-16.0); Mean Corpuscular HGB CONC 31.3 g/dL (32.0-36.0); Mean Corpuscular Hemoglobin 29.7 pg (27.0-31.0); Mean Corpuscular Volume 94.8 fL (78.0-98.0); Mean Platelet Volume 6.7 fL (7.4-10.4); Platelet Count 351 thou/uL (130-400); RBC Distribution Width 12.6 % (11.5-14.5); White Blood Cell (WBC) Count 7.6 thou/uL (4.8-10.8)
[2021-04-20 22:21] LABS: Anion Gap 13 mmol/L (10-20); BUN (Urea Nitrogen) 14 mg/dL (7.0-18.7); Calc. Creatinine Clearance 0 mL/min (70-130); Calcium 9.3 mg/dL (7.8-10.44); Carbon Dioxide 28 mmol/L (22-29); Chloride 104 mmol/L (98-107); Glucose 107 mg/dL (70-105); Potassium 4.5 mmol/L (3.5-5.1); Sodium 140 mmol/L (136-145)
== END 2021-04-20 23:36 | disposition home or self-care (01) ==
LOC: ERS 21:25
DX: R07.89 Other chest pain (principal); V89.9XXA Person injured in unspecified vehicle accident, initial encounter; Z79.84 Long term (current) use of oral hypoglycemic drugs; G40.909 Epilepsy, unspecified, not intractable, without status epilepticus; E11.9 Type 2 diabetes mellitus without complications; E03.9 Hypothyroidism, unspecified; E78.5 Hyperlipidemia, unspecified; E78.00 Pure hypercholesterolemia, unspecified; I10 Essential (primary) hypertension; F17.210 Nicotine dependence, cigarettes, uncomplicated
CPT/HCPCS: 36415; 71045; 80048; 84484; 85025; 93005

== ENCOUNTER 2021-06-04 18:07 | Emergency (ER) | payer MEDICARE, MEDICAID ==
[2021-06-04] MEDS ORDERED: Lidocaine 1% PF 5 ML VIAL ONE ×2 (20:57→22:08)
[2021-06-04] MEDS ORDERED: Bacitracin 1 PK ONE (23:08)
== END 2021-06-04 23:09 | disposition home or self-care (01) ==
LOC: ERS 18:07
DX: S61.511A Laceration without foreign body of right wrist, initial encounter (principal); E11.9 Type 2 diabetes mellitus without complications; E03.9 Hypothyroidism, unspecified; E78.5 Hyperlipidemia, unspecified; E78.00 Pure hypercholesterolemia, unspecified; F17.210 Nicotine dependence, cigarettes, uncomplicated; W25.XXXA Contact with sharp glass, initial encounter
CPT/HCPCS: 12002

== ENCOUNTER 2021-06-08 15:39 | Outpatient (CLI) | payer MEDICARE, MEDICAID ==
[2021-06-08 16:51] LABS: #Basophils 0.1 10x3/uL (0.0-0.2); #Eosinphils 0.2 10x3/uL (0.0-0.5); #Monocytes 0.5 10x3/uL (0.0-1.1); #Neutrophils 4.4 10x3/uL (1.5-8.4); %Lymphocytes 35.1 % (18.0-47.0); %Monocytes 6.1 % (0.0-10.0); %Neutrophils 55.2 % (40.0-75.0); Hemoglobin 13.6 g/dL (12.0-15.5); Mean Corpuscular HGB CONC 32.7 g/dL (32.0-36.0); Mean Corpuscular Hemoglobin 30.3 pg (27.0-33.0); Mean Corpuscular Volume 92.7 fl (81.6-98.3); Mean Platelet Volume 9.5 fl (7.4-10.4); Platelet Count 342 10x3/uL (150-450); RBC Distribution Width 13.2 % (11.5-14.5); Red Blood Cell (RBC) Count 4.49 10x6/uL (3.90-5.03); White Blood Cell (WBC) Count 7.9 10x3/uL (3.5-10.5)
[2021-06-09 16:43] LABS: SARS-CoV-2 PCR by NAA Not Detected (NotDetected)
== END 2021-06-08 15:40 | disposition home or self-care (01) ==
LOC: LABBT 15:39
PROVIDERS: ATTEND Otolaryngology Plastic Surgery within the Head & Neck
DX: Z01.812 Encounter for preprocedural laboratory examination (principal); S66.921A Laceration of unspecified muscle, fascia and tendon at wrist and hand level, right hand, initial encounter; Z20.822 Contact with and (suspected) exposure to COVID-19
CPT/HCPCS: 85025; U0003; U0005

== ENCOUNTER 2021-06-11 12:39 | Day surgery (SDC) | payer MEDICARE, MEDICAID ==
[2021-06-08 11:26] VITALS: BMI 29.0
[2021-06-11] MEDS ORDERED: Fentanyl 100 MCG/2 ML VIAL ONE ×2 (13:48→15:07)
[2021-06-11] MEDS ORDERED: Midazolam HCl 2 mg/2 ml Vial ONE (13:48)
[2021-06-11] MEDS ORDERED: Betamet Acet/Betamet Na Ph 30 MG/5 ML VIAL ONE (15:10)
[2021-06-11] MEDS ORDERED: Bupivacaine PF 0.5% 30 ML VIAL ONE (15:10)
[2021-06-11] MEDS ORDERED: Lidocaine 1% PF 5 ML VIAL ONE (15:34)
[2021-06-11] MEDS ORDERED: Ketorolac Tromethamine 30 MG/ML VIAL ONE (15:34)
[2021-06-11] MEDS ORDERED: Ondansetron PF 4 MG/2 ML Vial ONE (15:34)
[2021-06-11] MEDS ORDERED: PROPOFOL 200 MG/20 ML VIAL ONE (15:34)
[2021-06-11] MEDS ORDERED: Bupivacaine HCl 0.5%/Epinephrine 1:200,000/PF 30 ml Vial ONE (15:34)
[2021-06-11] MEDS ORDERED: Bacitracin Zinc Ointment 30 gm TUBE ONE (16:38)
[2021-06-11] MEDS ORDERED: Meperidine HCl/PF 25 MG/ML VIAL ONE (17:12)
== END 2021-06-11 18:44 | disposition home or self-care (01) ==
LOC: SDC 12:39
PROVIDERS: ATTEND Orthopaedic Surgery Hand Surgery
PROC: 0LQ50ZZ Repair Right Lower Arm and Wrist Tendon, Open Approach (ICD-10-PCS; principal; 2021-06-11)
PROC: 0LQ70ZZ Repair Right Hand Tendon, Open Approach (ICD-10-PCS; 2021-06-11)
PROC: 0LQ70ZZ Repair Right Hand Tendon, Open Approach (ICD-10-PCS; 2021-06-11)
PROC: 3E0T3BZ Introduction of Anesthetic Agent into Peripheral Nerves and Plexi, Percutaneous Approach (ICD-10-PCS; 2021-06-11)
DX: S66.821A Laceration of other specified muscles, fascia and tendons at wrist and hand level, right hand, initial encounter (principal); S66.221A Laceration of extensor muscle, fascia and tendon of right thumb at wrist and hand level, initial encounter; S61.501A Unspecified open wound of right wrist, initial encounter; E11.9 Type 2 diabetes mellitus without complications; E78.5 Hyperlipidemia, unspecified; E03.9 Hypothyroidism, unspecified; J45.909 Unspecified asthma, uncomplicated; N32.81 Overactive bladder; I10 Essential (primary) hypertension; F17.200 Nicotine dependence, unspecified, uncomplicated; Z79.1 Long term (current) use of non-steroidal anti-inflammatories (NSAID); Z79.84 Long term (current) use of oral hypoglycemic drugs; Z79.899 Other long term (current) drug therapy; W25.XXXA Contact with sharp glass, initial encounter; Y99.0 Civilian activity done for income or pay
CPT/HCPCS: J0690; J0702; J1885; J2175; J2250; J2405; J2704; J3010; S0020

== ENCOUNTER 2022-05-24 09:57 | Outpatient (CLI) | payer MEDICARE, MEDICAID | END 2022-05-24 09:58 | disposition home or self-care (01) | LOC: BICRAD 09:57 | PROVIDERS: ATTEND Internal Medicine | DX: R05.3 Chronic cough (principal) | CPT/HCPCS: 71046 ==

== ENCOUNTER 2022-12-11 08:39 | Outpatient (CLI) | payer MEDICARE, MEDICAID | END 2022-12-11 08:40 | disposition home or self-care (01) | LOC: CT 08:39 | PROVIDERS: ATTEND Family Medicine | DX: R41.3 Other amnesia (principal) | CPT/HCPCS: 70450 ==

== ENCOUNTER 2023-04-17 13:16 | Outpatient (CLI) | payer MEDICARE, MEDICAID | END 2023-04-17 13:17 | disposition home or self-care (01) | LOC: RAD 13:16 | PROVIDERS: ATTEND Psychiatry & Neurology Neurology | DX: F07.81 Postconcussional syndrome (principal); M47.812 Spondylosis without myelopathy or radiculopathy, cervical region | CPT/HCPCS: 72050 ==

== ENCOUNTER 2023-05-08 13:01 | Outpatient (CLI) | payer MEDICARE, MEDICAID | END 2023-05-08 13:02 | disposition home or self-care (01) | LOC: BICMAMMO 13:01 | PROVIDERS: ATTEND Family Medicine | DX: Z12.31 Encounter for screening mammogram for malignant neoplasm of breast (principal); Z80.3 Family history of malignant neoplasm of breast | CPT/HCPCS: 77063; 77067 ==

== ENCOUNTER 2023-07-15 10:19 | Outpatient (CLI) | payer MEDICARE, MEDICAID | END 2023-07-15 10:20 | disposition home or self-care (01) | LOC: BICRAD 10:19 | PROVIDERS: ATTEND Family Medicine | DX: M25.521 Pain in right elbow (principal) ==

== ENCOUNTER 2024-08-02 08:05 | Outpatient (CLI) | payer OTHER, MEDICAID ==
[2024-08-02] MEDS ORDERED: Iopamidol 370 76% 100 ML VIAL ONE (09:39)
== END 2024-08-02 08:06 | disposition home or self-care (01) ==
LOC: BICCT 08:05
PROVIDERS: ATTEND Neurological Surgery
DX: I67.1 Cerebral aneurysm, nonruptured (principal)
CPT/HCPCS: 70496; 82565; Q9967